=== PATIENT | male | born 1990 | race Caucasian/White ===

== ENCOUNTER 2016-09-19 22:24 | Emergency (ER) | payer SELFPAY ==
[~2016-09-19] VITALS: Ht 188 cm; Wt 64.0 kg
[2016-09-19 22:25] VITALS: BP 143/89; PULSE 85; RESP 16; TEMP 98.7; O2SAT 98
[2016-09-19] MEDS ORDERED: SULF1TAB23 PO (22:53)
[2016-09-19 23:27] LABS: BLOOD, URINE MOD (NEG); COMMENT (UR) CULT NOT INDICATED; CULTURE IF INDICATED CULT NOT INDICATED; GLUCOSE,URINE NEG (NEG); HYALINE CAST, URINE 2 /lpf (RARE); KETONE, URINE NEG (NEG); MUCUS URINE FEW /lpf (OCC); NITRITE,URINE NEG (NEG); PH, URINE 6.5 (5.0-8.5); URINE COLOR YELLOW (YELLW/STRAW)
[2016-09-19] MEDS ORDERED: SODIUM CHLORIDE 0.9% FLUSH 10 ML FLUSH IV FLUSH PRN (23:45)
--- NOTE | 2016-09-20 00:17 | PD ---
HPI Chief Complaint: Complaint Time Seen by Provider: 23:37 Travel History International Travel<30 days: No Contact w/Intl Traveler<30days: No Traveled to known affect area: No History of Present Illness HPI 25-year-old male here for evaluation of hematuria. The patient reports that he had an episode of hematuria 5 days ago and was seen at [facility]. He reports that he had a CT abdomen pelvis that was unremarkable, lab work that was unremarkable, and a UA that showed a UTI. He was started on Bactrim and his hematuria had improved. He returns today stating that his hematuria returned earlier this evening. He denies dysuria or difficulty urinating. At time of my assessment the patient reports that his urine is not clear. He denies fevers or chills. No back pain. No abdominal pain. PFSH Social History Tobacco Use: No Allergies-Medications (Allergen,Severity, Reaction): Coded Allergies: Cefzil (Verified Allergy, Unknown, 09/19/16) Dimetapp (Verified Allergy, Unknown, 09/19/16) Reported Meds & Prescriptions Reported Meds & Active Scripts Active Reported Sulfamethoxazole-Trimethoprim 800-160 Mg Tab 1 Tab PO BID Review of Systems Except as stated in HPI: all other systems reviewed are Neg Physical Exam Narrative GENERAL: Well-developed, well-nourished, comfortable, no apparent distress. SKIN: Focused skin assessment warm/dry. HEAD: Atraumatic. Normocephalic. EYES: Pupils equal and round. No scleral icterus. No injection or drainage. ENT: Mucous membranes pink and moist. NECK: Trachea midline. No JVD. CARDIOVASCULAR: Regular rate and rhythm. RESPIRATORY: No accessory muscle use. Clear to auscultation. Breath sounds equal bilaterally. GASTROINTESTINAL: Abdomen soft, non-tender, nondistended. MUSCULOSKELETAL: No obvious deformities. No clubbing. No cyanosis. No edema. No CVA tenderness. NEUROLOGICAL: Awake and alert. No obvious cranial nerve deficits. Motor grossly within normal limits. Normal speech. PSYCHIATRIC: Appropriate mood and affect; insight and judgment normal. Data Data Last Documented VS Vital Signs Date Time Temp Pulse Resp B/P Pulse Ox O2 Delivery O2 Flow Rate FiO2 09/19/16 22:25 98.7 85 16 143/89 98 Room Air Orders Urinalysis - C+S If Indicated (09/19/16 22:55) Basic Metabolic Panel (Bmp) (09/19/16 23:45) Complete Blood Count With Diff (09/19/16 23:45) Iv Access Insert/Monitor (09/19/16 23:45) Ecg Monitoring (09/19/16 23:45) Oximetry (09/19/16 23:45) Sodium Chloride 0.9% Flush (Ns Flush) (09/19/16 23:45) Mandatory Outpatient Referral (09/20/16 01:34) Labs Laboratory Tests Test 09/19/16 09/20/16 23:00 00:45 Urine Color YELLOW Urine Turbidity CLEAR Urine pH 6.5 Urine Specific [place] 1.021 Urine Protein TRACE mg/dL Urine Glucose (UA) NEG mg/dL Urine Ketones NEG mg/dL Urine Occult Blood MOD Urine Nitrite NEG Urine Bilirubin NEG Urine Urobilinogen LESS THAN 2.0 MG/DL Urine Leukocyte Esterase NEG Urine RBC /hpf Urine WBC 2 /hpf Urine Hyaline Casts 2 /lpf Urine Mucus FEW /lpf Microscopic Urinalysis Comment CULT NOT INDICATED White Blood Count 6.1 TH/MM3 Red Blood Count 5.15 MIL/MM3 Hemoglobin 15.7 GM/DL Hematocrit 44.9 % Mean Corpuscular Volume 87.2 FL Mean Corpuscular Hemoglobin 30.4 PG Mean Corpuscular Hemoglobin 34.9 % Concent Red Cell Distribution Width 12.7 % Platelet Count 203 TH/MM3 Mean Platelet Volume 7.5 FL Neutrophils (%) (Auto) 63.5 % Lymphocytes (%) (Auto) 26.6 % Monocytes (%) (Auto) 5.6 % Eosinophils (%) (Auto) 3.8 % Basophils (%) (Auto) 0.5 % Neutrophils # (Auto) 3.9 TH/MM3 Lymphocytes # (Auto) 1.6 TH/MM3 Monocytes # (Auto) 0.3 TH/MM3 Eosinophils # (Auto) 0.2 TH/MM3 Basophils # (Auto) 0.0 TH/MM3 CBC Comment DIFF FINAL Differential Comment Sodium Level 136 MEQ/L Potassium Level 3.8 MEQ/L Chloride Level 101 MEQ/L Carbon Dioxide Level 25.7 MEQ/L Anion Gap 9 MEQ/L Blood Urea Nitrogen 12 MG/DL Creatinine 1.08 MG/DL Estimat Glomerular Filtration 84 ML/MIN Rate Random Glucose 99 MG/DL Calcium Level 8.7 MG/DL MDM Medical Decision Making Medical Screen Exam Complete: Yes Emergency Medical Condition: Yes Medical Record Reviewed: Yes Differential Diagnosis UTI, cystitis, nephrolithiasis, glomerulonephritis, interstitial cystitis Narrative Course Vital signs show heart rate 85, blood pressure 143/89, pulse ox 98% on room air , oral temp of 98.7F. CBC shows WBC 6.1, hemoglobin 15.7, hematocrit 44.9, platelets 203. BMP is unremarkable. UA shows moderate occult blood, innumerable rbc's, 2 wbc's, 2 hyaline casts, negative nitrites, negative leukocyte esterase. Gross hematuria resolved while in the emergency department, and the patient is able to fully empty his bladder. The patient is still on Bactrim. He is stable for discharge home with outpatient follow-up. I will give him the information to the [facility] to follow-up with this week. I will also place a mandatory outpatient referral to urology as the patient has no insurance. Patient made aware of all findings and was informed on when to return to the emergency department. He verbalizes understanding and agreement with plan. Diagnosis Primary Impression: Gross hematuria Referrals: Shaan Bach DO 3 days Urologist [facility] 3 days Additional Instructions: Follow-up with a primary care physician this week. Follow-up with urologist Dr. Bach or urologist of your choice this week. Return to the emergency department for worsening symptoms or any other concerns. Disposition: 01 DISCHARGE HOME Condition: Stable Manny Mcadams MD Sep 20, 2016 00:17
[2016-09-20 00:58] LABS: AUTOMATED NEUTROPHIL # 3.9 TH/MM3 (1.8-7.7); BASOPHIL % 0.5 % (0.0-2.0); EOSINOPHIL # 0.2 TH/MM3 (0-0.4); EOSINOPHIL % 3.8 % (0.0-4.0); HEMATOCRIT 44.9 % (39.0-51.0); HEMO FLAGS DIFF FINAL; LYMPH % 26.6 % (9.0-44.0); LYMPHOCYTE # 1.6 TH/MM3 (1.0-4.8); MEAN CELL VOLUME 87.2 FL (80.0-100.0); MEAN CORPUSCULAR HEMOGLOBIN 30.4 PG (27.0-34.0); MEAN CORPUSCULAR HGB CONC 34.9 % (32.0-36.0); MONO % 5.6 % (0.0-8.0); NEUT % 63.5 % (16.0-70.0); PLATELET COUNT 203 TH/MM3 (150-450); RED BLOOD COUNT 5.15 MIL/MM3 (4.50-5.90); RED CELL DISTRIBUTION WIDTH 12.7 % (11.6-17.2); WHITE BLOOD COUNT 6.1 TH/MM3 (4.0-11.0)
[2016-09-20 01:27] LABS: BICARBONATE 25.7 MEQ/L (21.0-32.0); POTASSIUM 3.8 MEQ/L (3.5-5.1)
== END 2016-09-20 01:51 | disposition home or self-care (01) ==
LOC: NEPC 22:24
DX: R31.0 Gross hematuria (principal)
CPT/HCPCS: 80048; 81001; 85025; 99283